=== PATIENT | female | born 1955 ===

== ENCOUNTER 2020-05-06 13:29 | Observation (INO) | payer SELFPAY ==
[2020-05-06 14:31] LABS: #Basophils 0.1 thou/uL (0.0-0.2); #Eosinphils 0.3 thou/uL (0.0-0.7); #Lymphocytes 2.5 thou/uL (1.20-3.40); #Monocytes 0.6 thou/uL (0.11-0.59); #Neutrophils 4.2 thou/uL (1.40-6.50); %Basophils 0.7 % (0.0-1.0); %Eosinophils 4.3 % (0.0-10.0); %Monocytes 8.2 % (0.0-10.0); %Neutrophils 54.7 % (42.0-75.0); Hemoglobin 12.5 g/dL (12.0-16.0); Mean Corpuscular HGB CONC 32.9 g/dL (32.0-36.0); Mean Corpuscular Hemoglobin 29.7 pg (27.0-31.0); Mean Corpuscular Volume 90.1 fL (78.0-98.0); Mean Platelet Volume 7.2 fL (7.4-10.4); Platelet Count 267 thou/uL (130-400); RBC Distribution Width 11.2 % (11.5-14.5); Red Blood Cell (RBC) Count 4.21 mill/uL (4.20-5.40); White Blood Cell (WBC) Count 7.7 thou/uL (4.8-10.8)
--- NOTE | 2020-05-06 14:45 | RAD ---
Exam: Chest one view HISTORY:Chest pain and palpitation. Comparison: None FINDINGS: Cardiac silhouette: Normal Aorta: Atherosclerosis Pulmonary vessels: Normal Costophrenic angles: Clear LUNGS: No masses or consolidation. Pneumothorax: None Osseous abnormalities: None IMPRESSION: No acute cardiopulmonary process. Atherosclerosis.
[2020-05-06 15:12] LABS: ALT (SGPT) 36 U/L (8-55); AST (SGOT) 44 U/L (5-34); Albumin 4.1 g/dL (3.4-4.8); Alkaline Phosphatase 81 U/L (40-110); Anion Gap 15 mmol/L (10-20); BUN (Urea Nitrogen) 18 mg/dL (9.8-20.1); Bilirubin, Total 0.3 mg/dL (0.2-1.2); CK (CPK) 41 U/L (29-168); Calc. Creatinine Clearance 0 mL/min (70-130); Calcium 8.9 mg/dL (7.8-10.44); Carbon Dioxide 24 mmol/L (23-31); Chloride 104 mmol/L (98-107); Estimated GFR-MDRD 78; Globulin 3.7 g/dL (2.4-3.5); Glucose 104 mg/dL (80-115); Lipase 42 U/L (8-78); Potassium 4.3 mmol/L (3.5-5.1); Protein, Total 7.8 g/dL (6.0-8.3); Sodium 139 mmol/L (136-145)
[2020-05-06] MEDS ORDERED: Aspirin Chewable 81 MG TAB ONE (15:30)
[2020-05-06] MEDS ORDERED: Nitroglycerin 0.4 MG TAB (25 Tab Bottle) SL PRN (17:35)
[2020-05-06 18:31] LABS: Troponin I Less than 0.010 ng/mL (< 0.028)
--- NOTE | 2020-05-06 20:34 | PDOC.HHP ---
Hospitalist HPI - History of Present Illness Chest pain History of Present Illness: This is a 64-year-old female patient with no significant past medical history who presents with intermittent chest pain for the past 5 days. She speaks Cambodian. Most of the interpretation was done by her daughter. Patient notes that about 5 days ago he started having intermittent left-sided chest pain reflectivity. Today however the pain became progressively worsened that led her to come to the ED for further evaluation. Pain is left-sided, 5/10 in intensity with radiation to the jaw and arm on the left, she had associated nausea today. In the ED troponin x2 was negative, chest x-ray was negative. Hospitalist was consulted to admit for cardiac rule out She has a significant family history of coronary disease in her father who was stents. She does not smoke. Drinks occasionally. Hospitalist ROS - Review of Systems Constitutional: denies: fever, chills, weakness Respiratory: denies: cough, shortness of breath, SOB with excertion, wheezing Cardiovascular: reports: chest pain. denies: palpitations, orthopnea, paroxysmal noc. dyspnea, edema Gastrointestinal: reports: nausea. denies: vomiting, abdominal pain, diarrhea Neurological: denies: weakness, numbness, change in speech, confusion - Medication Medications: None Allergies: none Hospitalist History - Past Medical History Other Medical History: None of significance - Past Surgical History Other Surgical History: none of significance - Social History Smoking Status: Never smoker Alcohol: reports: Occassional Hospitalist Results - Labs Result Diagrams: 05/06/20 14:12 05/06/20 14:12 Lab results: WBC 7.7 thou/uL (4.8-10.8) 05/06/20 14:12 Hgb 12.5 g/dL (12.0-16.0) 05/06/20 14:12 Hct 38.0 % (36.0-47.0) 05/06/20 14:12 MCV 90.1 fL (78.0-98.0) 05/06/20 14:12 Plt Count 267 thou/uL (130-400) 05/06/20 14:12 Neutrophils % 54.7 % (42.0-75.0) 05/06/20 14:12 Sodium 139 mmol/L (136-145) 05/06/20 14:12 Potassium 4.3 mmol/L (3.5-5.1) 05/06/20 14:12 Chloride 104 mmol/L (98-107) 05/06/20 14:12 Carbon Dioxide 24 mmol/L (23-31) 05/06/20 14:12 BUN 18 mg/dL (9.8-20.1) 05/06/20 14:12 Creatinine 0.75 mg/dL (0.6-1.1) 05/06/20 14:12 Glucose 104 mg/dL (80-115) 05/06/20 14:12 Calcium 8.9 mg/dL (7.8-10.44) 05/06/20 14:12 Total Bilirubin 0.3 mg/dL (0.2-1.2) 05/06/20 14:12 AST 44 U/L (5-34) H 05/06/20 14:12 ALT 36 U/L (8-55) 05/06/20 14:12 Alkaline Phosphatase 81 U/L (40-110) 05/06/20 14:12 Creatine Kinase 41 U/L (29-168) 05/06/20 14:12 Troponin I Less than 0.010 ng/mL (< 0.028) 05/06/20 17:28 B-Natriuretic Peptide 67.8 pg/mL (0-100) 05/06/20 14:12 Serum Total Protein 7.8 g/dL (6.0-8.3) 05/06/20 14:12 Albumin 4.1 g/dL (3.4-4.8) 05/06/20 14:12 Lipase 42 U/L (8-78) 05/06/20 14:12 Hospitalist H&P A/P - Plan Plan: 64-year-old female patient with no significant past medical history presenting with chest pain. Chest pain Concerning for coronary disease possible ACS Troponins negative so far She is currently pain-free Plan was to admit patient for stress test in a.m. Of note however patient left AMA with her daughter as she did not consider herself to be too sick to stay in the hospital.
[2020-05-06] MEDS ORDERED: Nitroglycerin 2% Ointment 1 INCH/1 GM Packet TOP SCH (22:00)
[2020-05-07] MEDS ORDERED: Aspirin 81 mg Enteric Coated Tablet PO SCH (09:00)
[2020-05-07] MEDS ORDERED: Enoxaparin Sodium 40 MG/0.4 ML SYRINGE SC SCH (09:00)
--- NOTE | 2020-05-07 11:13 | EKG ---
Test Reason : Blood Pressure : / mmHG Vent. Rate : 067 BPM Atrial Rate : 067 BPM P-R Int : 138 ms QRS Dur : 082 ms QT Int : 410 ms P-R-T Axes : 065 044 063 degrees QTc Int : 433 ms Normal sinus rhythm Possible Left atrial enlargement Borderline ECG Confirmed by HIGINIO RUELAS MD ([id number]), photograph editor ANY MOURA ([id number]) on 05/07/2020 11:13:43 AM Referred By: Confirmed By:HIGINIO RUELAS MD
--- NOTE | 2020-05-10 06:28 | DIS ---
DATE OF ADMISSION: 05/06/2020 DATE OF DISCHARGE: 05/07/2020 DISCHARGE DIAGNOSIS: Noncardiac chest pain. DISCHARGE MEDICATIONS: Advised to take baby aspirin daily. HOSPITAL COURSE: Based on the admission H and P, the patient left AMA with her daughter as she did not consider herself to be too sick to be in the hospital. later in the day, I had been notified by the nurse that her stress test came back negative and she decided to leave. Then, I went to see the patient. The patient is Mandarin speaking only. Daughter at bedside. Stress test negative. I explained to the patient through her daughter. The patient currently visiting from [place] and she requested the medical records, which she can get it from the medical staff office after signing the release form. Again, the stress test is negative for ischemia. Her troponin x3 were negative. DISCHARGE INSTRUCTIONS: Activity as tolerated. Regular diet. Follow up with PCP in [place] as needed. Discharge time less than 30 minutes. Job ID: [id number]
== END 2020-05-07 19:26 | disposition admitted as inpatient to this hospital (09) ==
LOC: ERS 13:29 → 2SW 16:22 → ERHOLD 18:12
PROVIDERS: ADMIT Student in an Organized Health Care Education/Training Program; ATTEND Student in an Organized Health Care Education/Training Program
DX: R07.89 Other chest pain (principal); Z53.29 Procedure and treatment not carried out because of patient's decision for other reasons; Z82.49 Family history of ischemic heart disease and other diseases of the circulatory system
CPT/HCPCS: 36415; 71045; 80053; 82550; 83690; 83880; 84484; 85025; 93005

== ENCOUNTER 2020-05-07 14:02 | Observation (INO) | payer OTHER, SELFPAY ==
[2020-05-07 15:44] LABS: #Basophils 0.1 thou/uL (0.0-0.2); #Eosinphils 0.3 thou/uL (0.0-0.7); #Lymphocytes 2.3 thou/uL (1.20-3.40); #Monocytes 0.6 thou/uL (0.11-0.59); %Basophils 0.8 % (0.0-1.0); %Eosinophils 3.1 % (0.0-10.0); %Lymphocytes 27.6 % (21.0-51.0); %Monocytes 7.8 % (0.0-10.0); %Neutrophils 60.6 % (42.0-75.0); Hemoglobin 12.5 g/dL (12.0-16.0); Mean Corpuscular HGB CONC 33.6 g/dL (32.0-36.0); Mean Corpuscular Hemoglobin 30.3 pg (27.0-31.0); Mean Corpuscular Volume 90.3 fL (78.0-98.0); Mean Platelet Volume 6.9 fL (7.4-10.4); Platelet Count 249 thou/uL (130-400); RBC Distribution Width 11.1 % (11.5-14.5); Red Blood Cell (RBC) Count 4.11 mill/uL (4.20-5.40); White Blood Cell (WBC) Count 8.2 thou/uL (4.8-10.8)
--- NOTE | 2020-05-07 16:10 | RAD ---
XR Chest 1 View Portable History: Chest pain Comparison: Radiograph prior day Findings: Lungs are clear. No pneumothorax or effusion. Cardiac silhouette and mediastinal contours a re within normal limits. No acute osseous abnormality. Impression: No acute intrathoracic abnormality.
[2020-05-07 16:12] LABS: ALT (SGPT) 38 U/L (8-55); AST (SGOT) 37 U/L (5-34); Alkaline Phosphatase 84 U/L (40-110); Anion Gap 13 mmol/L (10-20); BUN (Urea Nitrogen) 21 mg/dL (9.8-20.1); Bilirubin, Total 0.3 mg/dL (0.2-1.2); CK (CPK) 42 U/L (29-168); Calc. Creatinine Clearance 0 mL/min (70-130); Carbon Dioxide 28 mmol/L (23-31); Chloride 105 mmol/L (98-107); Estimated GFR-MDRD 78; Globulin 3.4 g/dL (2.4-3.5); Glucose 97 mg/dL (80-115); Lipase 46 U/L (8-78); Potassium 4.6 mmol/L (3.5-5.1); Protein, Total 7.4 g/dL (6.0-8.3); Sodium 141 mmol/L (136-145)
[2020-05-07] MEDS ORDERED: Aspirin 325 mg Enteric Coated Tablet PO SCH (18:30)
[2020-05-07] MEDS ORDERED: Senokot S 8.6-50 MG TAB PO PRN (18:30)
[2020-05-07] MEDS ORDERED: Acetaminophen 325 MG TAB PO PRN (18:30)
[2020-05-07] MEDS ORDERED: Aspirin 325 MG TAB ONE (18:32)
--- NOTE | 2020-05-07 18:51 | PDOC.HHP ---
Hospitalist HPI - History of Present Illness chest pain;left sided chest pain History of Present Illness: Please see HPI from yesterday, 05/06/2020. Patient was admitted yesterday for same complaint but left AMA. She reports left sided chest pain x6 days, worse with movement. Reports only activity prior to chest pain was grocery shopping and carrying heavy bags. Reports it feels differently than sprained muscles she has had in the past. Reports one hour of diaphoresis, chest pain with radiation to back, neck pain with left arm numbness the day pain started. Family reports they were not sure if she was having a cardiac episode or a reaction to the traditional tr[place]ian herbal medication her gave her about an hour prior to these symptoms. Also reports she feels like she cannot catch her breath. Reports HOWE for about 8 months now, getting slightly worse. Reports slight edema to BLE at the end of the day. Has a strong family history of CAD. Patient is from [place] and history gathered with the help of her daughter who is at the bedside and translated. Patient does not have a PCP here. Denies URI symptoms, denies fever, chills. Reports ASA given yesterday helped symptoms. Hospitalist ROS - Review of Systems Constitutional: denies: fever, chills, sweats, weakness, malaise, other Eyes: denies: pain, vision change, conjunctivae inflammation, eyelid inflammation, redness, other ENT: denies: ear pain, ear discharge, nose pain, nose discharge, nose congestion, mouth pain, mouth swelling, throat pain, throat swelling, other Respiratory: reports: shortness of breath, SOB with excertion Cardiovascular: reports: chest pain Gastrointestinal: reports: nausea, abdominal pain Musculoskeletal: reports: neck pain, back pain (for about an hour several days ago; none today) Skin: denies: rash, lesions, samson, bruising, other Neurological: denies: weakness, numbness, incoordination, change in speech, confusion, seizures, other - Medication Medications: gives her herbal medications when she has symptoms of anything. Hospitalist History - Past Medical History Source: facilities manager Cardiac: reports: no pertinent history Pulmonary: reports: no pertinent history [employer]: reports: no pertinent history Gastrointestinal: reports: no pertinent history Renal/: reports: no pertinent history Endocrine: reports: no pertinent history Dermatology: reports: no pertinent history - Past Surgical History Past Surgical History: reports: no pertinent history - Family History Family History: reports: cardiac disorder - Social History Smoking Status: Never smoker Alcohol: reports: None Drugs: reports: none Living Situation: With Family Activity level: independent ambulation - Exam General Appearance: awake alert Eye: PERRL ENT: normocephalic atraumatic, moist mucosa Neck: supple, no JVD Heart: RRR, normal peripheral pulses Respiratory: CTAB, normal chest expansion Gastrointestinal: soft, non-tender Skin: normal turgor Musculoskeletal: normal strength Psychiatric: normal affect, A&O x 3 Hospitalist Results - Labs Result Diagrams: 05/07/20 15:32 05/07/20 15:32 Lab results: WBC 8.2 thou/uL (4.8-10.8) 05/07/20 15:32 Hgb 12.5 g/dL (12.0-16.0) 05/07/20 15:32 Hct 37.2 % (36.0-47.0) 05/07/20 15:32 MCV 90.3 fL (78.0-98.0) 05/07/20 15:32 Plt Count 249 thou/uL (130-400) 05/07/20 15:32 Neutrophils % 60.6 % (42.0-75.0) 05/07/20 15:32 Sodium 141 mmol/L (136-145) 05/07/20 15:32 Potassium 4.6 mmol/L (3.5-5.1) 05/07/20 15:32 Chloride 105 mmol/L (98-107) 05/07/20 15:32 Carbon Dioxide 28 mmol/L (23-31) 05/07/20 15:32 BUN 21 mg/dL (9.8-20.1) H 05/07/20 15:32 Creatinine 0.75 mg/dL (0.6-1.1) 05/07/20 15:32 Glucose 97 mg/dL (80-115) 05/07/20 15:32 Calcium 9.0 mg/dL (7.8-10.44) 05/07/20 15:32 Total Bilirubin 0.3 mg/dL (0.2-1.2) 05/07/20 15:32 AST 37 U/L (5-34) H 05/07/20 15:32 ALT 38 U/L (8-55) 05/07/20 15:32 Alkaline Phosphatase 84 U/L (40-110) 05/07/20 15:32 Creatine Kinase 42 U/L (29-168) 05/07/20 15:32 Troponin I Less than 0.010 ng/mL (< 0.028) 05/07/20 15:32 Serum Total Protein 7.4 g/dL (6.0-8.3) 05/07/20 15:32 Albumin 4.0 g/dL (3.4-4.8) 05/07/20 15:32 Lipase 46 U/L (8-78) 05/07/20 15:32 - Radiology Interpretation Chest x-ray Status: report reviewed by me ([email or web address]) Hospitalist H&P A/P - Problem (1) Chest pain Code(s): R07.9 - CHEST PAIN, UNSPECIFIED Status: Acute (2) Dyspnea Code(s): R06.00 - DYSPNEA, UNSPECIFIED Status: Acute - Plan Plan: Chest pain Troponins x4 in the last 24 hours are negative Symptoms started 6 days ago Will order stress test for AM Lipids/TSH in AM ASA 324mg daily DVT/GI prophylaxis See Dr. Conner's HPI from 05/06/[address] Mendosa
[2020-05-07 19:35] VITALS: BMI 20.3
[2020-05-07] MEDS: Famotidine 20 MG TAB PO SCH (20:34)
[2020-05-08 04:42] LABS: #Basophils 0.1 thou/uL (0.0-0.2); #Eosinphils 0.3 thou/uL (0.0-0.7); #Lymphocytes 3.2 thou/uL (1.20-3.40); #Monocytes 0.6 thou/uL (0.11-0.59); #Neutrophils 3.5 thou/uL (1.40-6.50); %Basophils 0.7 % (0.0-1.0); %Eosinophils 3.7 % (0.0-10.0); %Lymphocytes 42.1 % (21.0-51.0); %Monocytes 7.4 % (0.0-10.0); %Neutrophils 46.1 % (42.0-75.0); Hemoglobin 11.8 g/dL (12.0-16.0); Mean Corpuscular HGB CONC 31.5 g/dL (32.0-36.0); Mean Corpuscular Hemoglobin 28.9 pg (27.0-31.0); Mean Corpuscular Volume 91.7 fL (78.0-98.0); Mean Platelet Volume 7.1 fL (7.4-10.4); Platelet Count 241 thou/uL (130-400); RBC Distribution Width 11.3 % (11.5-14.5); Red Blood Cell (RBC) Count 4.07 mill/uL (4.20-5.40); White Blood Cell (WBC) Count 7.6 thou/uL (4.8-10.8)
[2020-05-08 05:09] LABS: ALT (SGPT) 34 U/L (8-55); AST (SGOT) 27 U/L (5-34); Albumin 3.6 g/dL (3.4-4.8); Alkaline Phosphatase 75 U/L (40-110); Anion Gap 13 mmol/L (10-20); BUN (Urea Nitrogen) 16 mg/dL (9.8-20.1); Bilirubin, Total 0.3 mg/dL (0.2-1.2); Calc. Creatinine Clearance 67 mL/min (70-130); Calcium 8.8 mg/dL (7.8-10.44); Carbon Dioxide 25 mmol/L (23-31); Cardiac Risk 2.5 (Less than 4.5); Chloride 107 mmol/L (98-107); Cholesterol 185 mg/dl (< 200 Desired); Estimated GFR-MDRD 80; Globulin 3.1 g/dL (2.4-3.5); Glucose 83 mg/dL (80-115); HDL Cholesterol 73 mg/dL (>60 Neg Risk); LDL Cholesterol, Calculated 88 mg/dL; Potassium 3.8 mmol/L (3.5-5.1); Protein, Total 6.7 g/dL (6.0-8.3); Sodium 141 mmol/L (136-145); Triglycerides 122 mg/dL (Less than 150)
[2020-05-08 08:18] VITALS: TEMP 98
[2020-05-08] MEDS: Famotidine 20 MG TAB PO SCH (08:56)
[2020-05-08] MEDS ORDERED: Enoxaparin Sodium 40 MG/0.4 ML SYRINGE SC SCH (09:00)
[2020-05-08] MEDS ORDERED: Aspirin 325 mg Enteric Coated Tablet PO SCH (09:00)
[2020-05-08] MEDS ORDERED: ADENOSINE 60 MG/20 ML VIAL ONE (09:25)
[2020-05-08 12:26] LABS: SARS-CoV-2 MS2 Positive; SARS-CoV-2 N Gene Negative; SARS-CoV-2 S Gene Negative; SARS-CoV-2 by NAA Not Detected (NotDetected); SARS-CoV-2 orf1ab Negative
[2020-05-08 15:41] VITALS: BP 97/48
--- NOTE | 2020-05-08 17:04 | NM ---
EXAM: NM Cardiac Stress W EF WF PROVIDED CLINICAL HISTORY: Chest pain. COMPARISON: None FINDINGS: This examination is performed as a sclerotic myocardial perfusion stress test after the administratio n of adenosine. No significant reversible defects are seen between the stress and resting acquisitions. Gated images demonstrate normal ventricular wall motion and wall thickening. Calculated left ventricular ejection fraction is 84%. IMPRESSION: 1. Normal myocardial perfusion study without evidence of a reversible defect seen to suggest ischemia . 2. Normal LVEF of 84%.
== END 2020-05-08 19:36 | disposition home or self-care (01) ==
LOC: ERS 14:02 → 2SW 17:34
PROVIDERS: ADMIT Family Medicine; ATTEND Family Medicine
DX: R07.9 Chest pain, unspecified (principal); R06.00 Dyspnea, unspecified; Z20.828 Contact with and (suspected) exposure to other viral communicable diseases
CPT/HCPCS: 36415; 71045; 78452; 80053; 80061; 82550; 83690; 84443; 84484; 85025; 87635; 93005; 93017; 94760; 96372; A9500; G0378; J0153; J1650; U0003